=== PATIENT | female | born 1955 | race Caucasian/White ===

== ENCOUNTER 2018-03-07 16:20 | Emergency (ER) | payer OTHER ==
--- NOTE | 2018-03-07 16:29 | PDOC ---
Rapid Medical Evaluation Chief Complaint: Headache Time Seen by Provider: 03/07/18 16:27 Medical Evaluation: Allergies Allergy/AdvReac Type Severity Reaction Status Date / Time No Known Allergies Allergy Verified 03/07/18 16:26 03/07/18 16:27 I have performed a brief in person evaluation of this patient. The patient presents with a chief complaint of: CORBETT and "bruising." Pt is a 62 YO female who states that she has had a CORBETT x 1 week and bruising without injury x 1 week. Pertinent PE: Skin: Clear Lungs: Clear Heart: RRR Abd: Nontender MS: Moves all extremities without difficulty. Neuro: Alert and oriented Psych: Appropriate affect The patient will proceed to: pt will go to the main ED for further evaluation. Discharge Disposition - Diagnosis Headache Qualifiers: Headache type: unspecified Headache chronicity pattern: acute headache Intractability: not intractable Qualified Code(s): R51 - Headache - Referrals Referrals: Adan White [Primary Care Provider] - - Patient Instructions - Post Discharge Activity
[2018-03-07 16:30] VITALS: BMI 32.0
[2018-03-07] MEDS ORDERED: SODIUM CHLORIDE 0.9% 500 ML INFUS.BAG IV ONE (20:28)
[2018-03-07] MEDS ORDERED: ACETAMINOPHEN 1000 MG/100 ML VIAL (NON FORMULARY) IVPB ONE (20:28)
[2018-03-07] MEDS ORDERED: ACETAMINOPHEN INJECTION 100 ML IVPB ONE (21:08)
--- NOTE | 2018-03-07 21:14 | PDOC ---
History of Present Illness - General Chief Complaint: Headache Stated Complaint: Headache/LEFT LEG PAIN Time Seen by Provider: 03/07/18 16:27 History Source: Patient Exam Limitations: No Limitations - History of Present Illness Initial Comments: This is a 62 YOF with h/o who p/w posterior headache and neck pain, head-to-toe body aches, leg pain worse on the left than the right, hot flashes, swelling in the face and legs, and facial flushing on both cheeks worsening for the past 2 weeks. She has never had symptoms like this before and has not taken medications for these symptoms. She has a family history of lupus but has not been diagnosed with this herself. She additionally notes mild lightheadedness and mild nausea over the past couple of days. denies measured fever, chills, vomiting, diarrhea, constipation, black/bloody stool, dysuria, hematuria, chest pain, SOB, or other new symptoms. Past History - Past Medical History Allergies/Adverse Reactions: Allergies Allergy/AdvReac Type Severity Reaction Status Date / Time No Known Allergies Allergy Verified 03/07/18 16:26 Home Medications: Ambulatory Orders Clopidogrel Bisulfate [Plavix -] 75 mg PO DAILY 11/11/13 Lisinopril/Hydrochlorothiazide [Lisinopril-Hctz 10-12.5 mg Tab] 1 each PO DAILY 11/11/13 Pentosan Polysulfate Sodium [Elmiron] 100 mg PO TID 11/11/13 Pregabalin [Lyrica] 50 mg PO BID 11/11/13 Simvastatin [Zocor -] 20 mg PO HS 11/11/13 Anemia: No Asthma: No Cancer: No Cardiac Disorders: No CVA: Yes COPD: No CHF: No Dementia: No Diabetes: Yes GI Disorders: Yes (MELENA, DYSPHAGIA, COLON POLYP) Disorders: No HTN: Yes Hypercholesterolemia: Yes Liver Disease: Yes (FATTY) Seizures: No Thyroid Disease: No - Surgical History Abdominal Surgery: No Appendectomy: No Cardiac Surgery: No Cholecystectomy: Yes Lung Surgery: No Neurologic Surgery: No Orthopedic Surgery: No - Immunization History Immunization Up to Date: No - Suicide/Smoking/Psychosocial Hx Smoking History: Never smoked Have you smoked in the past 12 months: No Information on smoking cessation initiated: No Hx Alcohol Use: No Drug/Substance Use Hx: No Substance Use Type: None Hx Substance Use Treatment: No *Physical Exam - Vital Signs Last Vital Signs Temp Pulse Resp BP Pulse Ox 99.1 F 78 18 140/84 100 03/07/18 16:27 03/07/18 16:27 03/07/18 16:27 03/07/18 16:27 03/07/18 16:27 ED Treatment Course - LABORATORY CBC & Chemistry Diagram: 03/07/18 21:09 03/07/18 23:25 - RADIOLOGY Radiology Studies Ordered: Category Date Time Status CHEST X-RAY PORTABLE* [RAD] Stat Radiology 03/07/18 20:28 Ordered *DC/Admit/Observation/Transfer Diagnosis at time of Disposition: Facial flushing Headache Qualifiers: Headache type: unspecified Headache chronicity pattern: acute headache Intractability: not intractable Qualified Code(s): R51 - Headache - Discharge Dispostion Disposition: HOME Condition at time of disposition: Stable Decision to Admit order: No - Referrals Referrals: Adan White [Primary Care Provider] - Landon George MD [Staff Physician] - Nagi Hameed MD [Staff Physician] - - Patient Instructions Additional Instructions: YOU WERE SEEN IN THE ER FOR HEADACHE, FACIAL REDNESS, SWELLING, NAUSEA, AND LIGHTHEADEDNESS. WE DID AN EXAM AND LABORATORIES, AND THERE WERE NO CONCERNING ABNORMALITIES. THE TEST FOR LUPUS TAKES A FEW DAYS TO FINISH. WE GAVE YOU MEDICATIONS AND FLUIDS HERE IN THE DEPARTMENT WHICH DID HELP YOUR SYMPTOMS. AFTER OUR ASSESSMENT, WE DO NOT BELIEVE YOU ARE HAVING A MEDICAL EMERGENCY AT THIS TIME, AND WE BELIEVE YOU ARE SAFE TO GO HOME. PLEASE FOLLOW UP WITH YOUR PRIMARY CARE PROVIDER IN 1-3 DAYS. CALL THEIR CLINIC, TELL THEM YOU WERE SEEN IN THE ER, AND TELL THEM YOU NEED A FOLLOW-UP. PLEASE ALSO FOLLOW UP WITH THE NEUROLOGIST AND THE HEALTHCARE BUSINESS ANALYST. WE ARE GIVING YOU REFERRAL INFORMATION IN THESE PAPERS. IF YOU HAVE ANY NEW OR WORSENING SYMPTOMS, ESPECIALLY FEVER, FAINTING, CHEST PAIN, DIFFICULTY BREATHING, OR OTHER SYMPTOMS, PLEASE COME BACK TO THE ER AT ANY TIME (24 HOURS A DAY). IF YOU ARE HAVING SEVERE OR LIFE THREATENING SYMPTOMS, OR SYMPTOMS THAT MAKE IT UNSAFE TO DRIVE OR HAVE SOMEONE DRIVE YOU, PLEASE CALL 911. FUE VISTO EN LA CAMILO DE EMERGENCIAS POR DOLOR DE EFRAIN, ENROJECIMIENTO FACIAL, HINCHAZON, NAUSEA, Y MAREOS. HACEMOS UN EXAMEN Y LABORATORIOS, Y NO HABA ANTES DE LAS ANORMALIDADES. LA PRUEBA DE LUPUS JEANNIE UNOS POCOS KHANNA PARA TERMINAR. LE ENTREGAMOS MEDICAMENTOS Y FLUIDOS EN EL DEPARTAMENTO QUE LE AYUD A JUNI SNTOMAS. DESPUS DE NUESTRA EVALUACIN, NO CREEMOS QUE EST TENIENDO ALCON EMERGENCIA MDICA EN PAUL MOMENTO, Y CREEMOS QUE EST SEGURO PARA IR A CASA. FAVOR DE SEGUIR CON BRYAN PROVEEDOR DE CUIDADO PRIMARIO EN 1-3 KHANNA. LLAME A BRYAN CLNICA, DGALOS QUE SE LE CORBETT VISTO EN LA ERRISTA Y DGALOS QUE NECESITA UN SEGUIMIENTO. POR FAVOR TAMBIN SIGA CON EL NEURLOGO Y EL REUMATLOGO. LE DAMOS INFORMACIN DE REFERENCIA EN ESTOS DOCUMENTOS. SI TIENE ALGUNOS SNTOMAS NUEVOS O INTENSIVOS, FIEBRE ESPECIAL, PODERES, DOLOR DE PECHO, DIFICULTADES DE RESPIRACIN O OTROS SNTOMAS, POR FAVOR VUELVA A LA ERDA EN CUALQUIER HORA (24 HORAS AL DA). SI TIENE SNTOMAS SEVEROS O VIVIENTES DE AMENAZA, O SNTOMAS QUE HACEN QUE NO ES SEGURO CONDUCIR O HACER QUE ALGUIEN LO CONDUZCA, LLAME AL 911. - Post Discharge Activity
[2018-03-07 21:24] LABS: BASO % 1.2 % (0-2.0); EOS % 3.2 % (0-4.5); HEMATOCRIT 41.6 % (32.4-45.2); HEMOGLOBIN 13.7 GM/dL (10.7-15.3); LYMPH % 26.5 % (8-40); MCH 25.8 pg (25.7-33.7); MCHC 32.9 g/dl (32.0-36.0); MEAN CELL VOLUME 78.3 fl (80-96); MEAN PLT VOLUME 9.5 fl (7.5-11.1); MONO % 7.5 % (3.8-10.2); NEUT % 61.6 % (42.8-82.8); PLATELET COUNT 283 K/MM3 (134-434); RBC 5.31 M/mm3 (3.60-5.2); RDW 14.4 % (11.6-15.6); WHITE BLOOD COUNT 10.6 K/mm3 (4.0-10.0)
--- NOTE | 2018-03-07 23:56 | PDOC ---
Attending Attestation - HPI HPI: 03/08/18 00:05 The patient is a 62 year old female, with a significant past medical history of chronic headaches, HTN, HLD, interstitial cystitis, who presents to the emergency department with gradually increasing headache over 2 weeks, with new onset of diffuse body aches and swelling. The patient denies chest pain, shortness of breath, and dizziness. The patient denies fever, chills, nausea, vomit, diarrhea and constipation. The patient denies dysuria, frequency, urgency and hematuria. Allergies: NKDA Family Hx: Lupus PCP - Dr. Adan Scott - Medical Decision Making 03/08/18 00:05 Documentation prepared by Chelsie Arias, acting as durable medical equipment technician for Sharri Chavez MD <Chelsie Arias - Last Filed: 03/08/18 00:04> - Resident Resident Name: TavaresCharlotte - ED Attending Attestation I have performed the following: I have examined & evaluated the patient, The case was reviewed & discussed with the resident, I agree w/resident's findings & plan, Exceptions are as noted - Physicial Exam PE: 03/08/18 02:03 wnwd 62 yo female p/w headache head ncat neck supple lungs cta b/l cvs [id number] abd nontender ext no deformity neuro axox3,ambulatory - Medical Decision Making 03/08/18 02:05 labs were reviewed and found to be unremarkable plan pt is to followup with her PCP <Sharri Chavez - Last Filed: 03/08/18 02:06>
[2018-03-08 00:11] LABS: ALBUMIN 3.3 g/dl (3.4-5.0); ALK PHOS 68 U/L (45-117); ANION GAP 6 MMOL/L (8-16); BILIRUBIN,TOTAL 0.2 mg/dL (0.2-1); BLOOD UREA NITROGEN 9 mg/dL (7-18); CALCIUM 8.3 mg/dL (8.5-10.1); CHLORIDE 107 mmol/L (98-107); CO2 29 mmol/L (21-32); CREATININE 0.4 mg/dL (0.55-1.3); GLUCOSE,RANDOM 102 mg/dL (74-106); SGOT/AST 23 U/L (15-37); SGPT/ALT 39 U/L (13-61); SODIUM 141 mmol/L (136-145); TOT PROT 6.5 g/dl (6.4-8.2)
[2018-03-08 01:05] VITALS: BP 131/71; PULSE 71; TEMP 97.9
== END 2018-03-08 01:05 | disposition home or self-care (01) ==
LOC: JER 16:20
PROC: 3E033NZ Introduction of Analgesics, Hypnotics, Sedatives into Peripheral Vein, Percutaneous Approach (ICD-10-PCS; principal; 2018-03-07)
DX: R51 Headache (principal); R23.2 Flushing; I10 Essential (primary) hypertension; E78.00 Pure hypercholesterolemia, unspecified; E11.9 Type 2 diabetes mellitus without complications; Z87.19 Personal history of other diseases of the digestive system; Z86.73 Personal history of transient ischemic attack (TIA), and cerebral infarction without residual deficits
CPT/HCPCS: 36415; 71045-TC-FY; 80053; 82550; 83735; 84100; 84443; 84484; 85025; 86038; 96374; 99282-25; J0131

== ENCOUNTER 2018-12-27 09:57 | Emergency (ER) | payer OTHER ==
[2018-12-27 10:02] VITALS: BP 151/78; PULSE 83; TEMP 98.2; BMI 30.8
--- NOTE | 2018-12-27 11:27 | PDOC ---
History of Present Illness - General Chief Complaint: Headache Stated Complaint: HEADACHE/DIZZY Time Seen by Provider: 12/27/18 11:27 - History of Present Illness Initial Comments: 63 year old female with PMH of HTN, frequent headaches, HTN, HLD, interstitial cystitis, DM, asthma and CVA (2013), presenting with headache and visual blurriness for the past half day. States that she had a gradual onset of a throbbing pressure that woke her up at 3 AM this morning. This feels similar to her previous headaches which have been nearly daily for the past several months. She occasionally gets visual blurriness along with her headaches as well but the concerning issue is that she had "bulging forehead veins" during this episode so she came for evaluation. Denies fevers, chills, nausea, vomiting , neck stiffness, or other symptoms. She typically takes Tylenol with good relief of her headaches, hwoever, she did not take any today. She follows with Dr. Mo for her headache management. 12/27/18 11:49 Past History - Past Medical History Allergies/Adverse Reactions: Allergies Allergy/AdvReac Type Severity Reaction Status Date / Time No Known Allergies Allergy Verified 12/27/18 09:59 Home Medications: Ambulatory Orders Albuterol Sulfate 5 mg IH DAILY 12/27/18 Albuterol Sulfate [Proair Hfa] 8.5 gm IH ASDIR 12/27/18 Aspirin 81 mg PO DAILY 12/27/18 Atorvastatin Ca [Lipitor] 40 mg PO HS 12/27/18 Docusate Sodium [Colace -] 100 mg PO DAILY 12/27/18 Gabapentin 300 mg PO DAILY 12/27/18 Lisinopril/Hydrochlorothiazide [Lisinopril-Hctz 20-25 mg Tab] 1 each PO DAILY Meloxicam 15 mg PO DAILY 12/27/18 Montelukast Na [Singulair -] 10 mg PO HS 12/27/18 Sennosides [Senna] 8.6 mg PO DAILY 12/27/18 metFORMIN HCL [Metformin ER Osmotic] 1,000 mg PO BID 12/27/18 Anemia: No Asthma: No Cancer: No Cardiac Disorders: No CVA: Yes COPD: No CHF: No Dementia: No Diabetes: Yes GI Disorders: Yes (MELENA, DYSPHAGIA, COLON POLYP) Disorders: No HTN: Yes Hypercholesterolemia: Yes Liver Disease: Yes (FATTY) Seizures: No Thyroid Disease: No - Surgical History Abdominal Surgery: No Appendectomy: No Cardiac Surgery: No Cholecystectomy: Yes Lung Surgery: No Neurologic Surgery: No Orthopedic Surgery: No - Immunization History Immunization Up to Date: No - Suicide/Smoking/Psychosocial Hx Smoking History: Never smoked Have you smoked in the past 12 months: No Hx Alcohol Use: No Drug/Substance Use Hx: No Substance Use Type: None Hx Substance Use Treatment: No Review of Systems - Review of Systems Constitutional: No: Chills, Diaphoresis, Fever, Loss of Appetite HEENTM: Yes: Blurred Vision. No: Eye Pain, Tearing Respiratory: No: Cough, Orthopnea, Shortness of Breath Cardiac (ROS): No: Chest Pain, Edema, Irregular Heart Rate ABD/GI: No: Nausea, Poor Appetite, Vomiting : No: Burning, Dysuria, Discharge Neurological: Yes: Headache. No: Numbness, Paresthesia, Tingling, Tremors Psychiatric: No: Anxiety, Depression Hematologic/Lymphatic: No: Anemia, Blood Clots, Easy Bleeding *Physical Exam - Vital Signs Last Vital Signs Temp Pulse Resp BP Pulse Ox 98.2 F 83 18 151/78 100 12/27/18 10:01 12/27/18 10:01 12/27/18 10:01 12/27/18 10:12/27/18 10:01 - Physical Exam General Appearance: Yes: Nourished, Appropriately Dressed. No: Apparent Distress HEENT: positive: EOMI, BAYLEE, Normal ENT Inspection, Normal Voice Neck: positive: Trachea midline, Normal Thyroid, Supple. negative: Tender, Rigid Respiratory/Chest: positive: Lungs Clear, Normal Breath Sounds. negative: Chest Tender, Respiratory Distress, Accessory Muscle Use Cardiovascular: positive: Regular Rhythm, Regular Rate Gastrointestinal/Abdominal: positive: Flat, Soft. negative: Tender Lymphatic: negative: Adenopathy, Tenderness Musculoskeletal: positive: Normal Inspection. negative: Decreased Range of Motion Extremity: positive: Normal Capillary Refill, Normal Range of Motion. negative : Normal Inspection, Tender Integumentary: positive: Normal Color, Dry, Warm Neurologic: positive: patternmaker plaster II-XII NML intact, Fully Oriented, Alert, Normal Mood/ Affect, Normal Response, Motor Strength 5/5 Medical Decision Making - Medical Decision Making 63 year old female with frequent headaches presenting with a headache identical to her previous ones. No neurological deficits on our exams. Patent's symptoms completely relieved with these medication and patient would like to go home., Repeat neuro exam still non-focal and patient will be DC'd with follow up instructions and return precautions. *DC/Admit/Observation/Transfer Diagnosis at time of Disposition: Headache - Discharge Dispostion Disposition: HOME Condition at time of disposition: Improved Decision to Admit order: No - Referrals Referrals: Adan White [Primary Care Provider] - Rom Arnold DO [Staff Physician] - - Patient Instructions Printed Discharge Instructions: DI for Headache Additional Instructions: Please use Tylenol for your headache every 4-6 hours. Please follow up with your neurologist to better control your headaches. If you do not have one, we put Dr. Arnold's name on this sheet. Please return to the ED if you have new or worsening symptoms. - Post Discharge Activity
[2018-12-27] MEDS ORDERED: ACETAMINOPHEN 500 MG TABLET (FP) PO ONE (12:10)
[2018-12-27] MEDS ORDERED: METOCLOPRAMIDE HCL 10 MG TABLET (FP) PO ONE (12:10)
[2018-12-27] MEDS ORDERED: METOCLOPRAMIDE HCL INJECTION 10 MG/2 ML VIAL IVPUSH ONE (12:13)
[2018-12-27] MEDS ORDERED: ACETAMINOPHEN 1000 MG/100 ML VIAL (NON FORMULARY) IVPB ONE (12:13)
[2018-12-27] MEDS ORDERED: ACETAMINOPHEN INJECTION 100 ML IVPB ONE (13:04)
[2018-12-27] MEDS ORDERED: METOCLOPRAMIDE HCL INJECTION 10 MG/2 ML VIAL ONE (13:04)
--- NOTE | 2018-12-29 07:48 | PDOC ---
Documentation entered by Jesus Murray SCRIBE, acting as scribe for Jean-Pierre Josue MD. Jean-Pierre Josue MD: This documentation has been prepared by the edmundoibe, Jesus Murray SCRIBE, under my direction and personally reviewed by me in its entirety. I confirm that the documentation accurately reflects all work, treatment, procedures, and medical decision making performed by me. Attending Attestation - Resident Resident Name: Isacc Bocanegra - ED Attending Attestation I have performed the following: I have examined & evaluated the patient, The case was reviewed & discussed with the resident, I agree w/resident's findings & plan, Exceptions are as noted - HPI HPI: 12/27/18 12:01 The patient is a 63 year old female with a significant past medical history of chronic headaches, hypertension, hyperlipidemia, interstitial cystitis, diabetes , asthma and stroke (2013) who presents to the emergency department with a headache since earlier today. The patient describes her headache as a throbbing pressure-like sensation that woke her at 3am. Pt states that for the past several months, she has had daily headaches. This headache is exactly the same as her usual headache, but pt states she was worried because she saw her forehead veins bulging this morning. This has since resolved. Pt denies any new symptoms. Denies any F/C. Denies neck stiffness. Denies worst headache of life or thunderclap. Denies weakness/numbness in any extremity. Pt had MRI 3 months ago for her headaches that was normal. Pt currently follows with Dr. Hameed. Pt takes tylenol for her HAs. Did not take any today. - Physicial Exam PE: 12/27/18 12:23 "GENERAL: Awake, alert, and fully oriented, in no acute distress. HEAD: No signs of trauma EYES: PERRLA, EOMI, sclera anicteric, conjunctiva clear ENT: Auricles normal inspection, hearing grossly normal, nares patent, oropharynx clear without exudates. Moist mucosa NECK: Nontender, no stepoffs, Normal ROM, supple, no lymphadenopathy, JVD, or masses LUNGS: Breath sounds equal, clear to auscultation bilaterally. No wheezes, and no crackles HEART: Regular rate and rhythm, normal S1 and S2, no murmurs, rubs or gallops ABDOMEN: Soft, nontender, normoactive bowel sounds. No guarding, no rebound. No masses EXTREMITIES: Normal range of motion, no edema. No clubbing or cyanosis. No cords, erythema, or tenderness NEUROLOGICAL: Cranial nerves II through XII intact. 5/5 strength and sensation in all extremities, Normal speech, normal gait, normal cerebellar function SKIN: Warm, Dry, normal turgor, no rashes or lesions noted. - Medical Decision Making 12/27/18 12:23 63 F with headaches consistent with her typical daily headaches. NO neuro deficits on exam. No new characteristics or symptoms other than "bulging forehead veins" that have since resolved. Pt had normal MRI recently. No indication for repeat imaging today. - Tylenol, reglan - F/u neurology 12/27/18 13:34 Pt reassessed - now with resolution of headache. Neuro exam continues to be non-focal Pt is well appearing, with normal vitals. Clinically stable for DC at this time. I discussed the physical exam findings, ancillary test results and final diagnoses with the patient. I answered all of the patient's questions. The patient was satisfied with the care received and felt comfortable with the discharge plan and treatment plan. The patient agrees to follow up with the primary care physician within 24-72 hours.
== END 2018-12-27 14:34 | disposition home or self-care (01) ==
LOC: JER 09:57
PROC: 3E033GC Introduction of Other Therapeutic Substance into Peripheral Vein, Percutaneous Approach (ICD-10-PCS; principal; 2018-12-27)
PROC: 3E033NZ Introduction of Analgesics, Hypnotics, Sedatives into Peripheral Vein, Percutaneous Approach (ICD-10-PCS; 2018-12-27)
DX: R51 Headache (principal); I10 Essential (primary) hypertension; E78.00 Pure hypercholesterolemia, unspecified; E11.9 Type 2 diabetes mellitus without complications; Z79.84 Long term (current) use of oral hypoglycemic drugs; Z86.73 Personal history of transient ischemic attack (TIA), and cerebral infarction without residual deficits; Z87.19 Personal history of other diseases of the digestive system
CPT/HCPCS: 96374; 96375; 99283-25; J0131